=== PATIENT | female | born 2000 | race Caucasian/White ===

== ENCOUNTER 2023-10-20 23:52 | Emergency (ER) | payer BC ==
[2023-10-21] MEDS: Sodium Chloride 0.9% 1,000 ML IV SCH (00:30)
[2023-10-21] MEDS: Ondansetron 4 MG/2 ML SDV IVPUSH ONE (00:30)
[2023-10-21] MEDS: Sodium Chloride 0.9% 10 ML Syringe FLUSH PRN (00:32)
[2023-10-21 00:38] LABS: BASOPHILS PERCENT AUTO 0.2 % (0.0-1.0); EOSINOPHILS PERCENT AUTO 1.8 % (1.0-3.0); HEMATOCRIT 44.6 % (37.0-47.0); HEMOGLOBIN 15.6 g/dL (12.0-16.0); LYMPHOCYTES PERCENT AUTO 8.2 % (20.5-50.1); MEAN CORPUSCULAR HEMOGLOBIN 29.3 pg (27.0-34.0); MEAN CORPUSCULAR VOLUME 83.7 fL (80-100); MONOCYTES PERCENT AUTO 4.8 % (2-8); PLATELET COUNT,PLT 261 10^3/uL (150-450); RED BLOOD CELL COUNT 5.33 10^6/uL (4.2-5.4); WHITE BLOOD CELL COUNT,WBC 10.7 10^3/uL (5.0-10.0)
[2023-10-21 00:49] LABS: A/G RATIO 1.4; ALBUMIN 4.4 g/dL (3.4-5.0); ANION GAP 14.6 mEq/L (7-13); BILIRUBIN TOTAL 1.1 mg/dL (0.2-1.0); BUN/CREATININE RATIO 18.8 (No establ ref range); CALCIUM 8.7 mg/dL (8.5-10.1); CREATININE 0.96 mg/dL (0.55-1.02); EST CRCL DRUG DOSING (CG) 66.02 mL/min; POTASSIUM,K 3.6 mmol/L (3.5-5.1); PROTEIN TOTAL,TP 7.6 g/dL (6.4-8.2)
== END 2023-10-21 01:15 | disposition home or self-care (01) ==
LOC: DL.ED 23:52
DX: R19.7 Diarrhea, unspecified (principal); R11.2 Nausea with vomiting, unspecified; Z79.899 Other long term (current) drug therapy
CPT/HCPCS: 36415; 80053; 85025; 96361; 96374; 99284; J2405; J7030; J3490

== ENCOUNTER 2023-10-21 21:11 | Emergency (ER) | payer BC ==
[2023-10-21] MEDS: Sodium Chloride 0.9% 1,000 ML IV SCH ×2 (21:55→22:55)
[2023-10-21] MEDS: Metoclopramide 10 MG/2 ML SDV IVPUSH ONE (21:55)
[2023-10-21] MEDS: Sodium Chloride 0.9% 10 ML Syringe FLUSH PRN (22:00)
[2023-10-21 22:03] LABS: ANION GAP 15.7 mEq/L (7-13); CALCIUM 8.5 mg/dL (8.5-10.1); CREATININE 0.88 mg/dL (0.55-1.02); EST CRCL DRUG DOSING (CG) 72.03 mL/min; POTASSIUM,K 3.7 mmol/L (3.5-5.1)
[2023-10-21] MEDS: Ondansetron 4 MG/2 ML SDV IVPUSH ONE (22:57)
== END 2023-10-21 23:32 | disposition home or self-care (01) ==
LOC: DL.ED 21:11
DX: R11.2 Nausea with vomiting, unspecified (principal); R19.7 Diarrhea, unspecified; R10.30 Lower abdominal pain, unspecified; I10 Essential (primary) hypertension; Z79.899 Other long term (current) drug therapy
CPT/HCPCS: 36415; 80048; 87045; 87046; 87899; 96361; 96374; 96375; 99283; 99284-25; J2405; J2765; J3490; J7030

== ENCOUNTER 2024-05-05 10:20 | Emergency (ER) | payer BC ==
[2024-05-05 10:57] LABS: BASOPHILS PERCENT AUTO 0.5 % (0.0-1.0); EOSINOPHILS PERCENT AUTO 6.2 % (1.0-3.0); HEMATOCRIT 43.7 % (37.0-47.0); MEAN CORPUSCULAR HEMOGLOBIN 29.4 pg (27.0-34.0); MEAN CORPUSCULAR HGB CONC 34.3 g/dL (33.0-35.0); MEAN CORPUSCULAR VOLUME 85.5 fL (80-100); MONOCYTES PERCENT AUTO 9.4 % (2-8); NEUTROPHILS PERCENT AUTO 50.9 % (42.2-75.2); PLATELET COUNT,PLT 276 10^3/uL (150-450); RED BLOOD CELL COUNT 5.11 10^6/uL (4.2-5.4); WHITE BLOOD CELL COUNT,WBC 5.5 10^3/uL (5.0-10.0)
[2024-05-05] MEDS: Sodium Chloride 0.9% 1,000 ML IV ONE (11:00)
[2024-05-05] MEDS: methylPREDNISolone Sodium Succinate 125 MG/2 ML SDV IVPUSH ONE (11:01)
[2024-05-05] MEDS: Ondansetron 4 MG/2 ML SDV IVPUSH ONE (11:01)
[2024-05-05] MEDS: Famotidine 20 MG/2 ML SDV IVPUSH ONE (11:01)
[2024-05-05 11:16] LABS: A/G RATIO 1.4; ALBUMIN 4.1 g/dL (3.4-5.0); ANION GAP 12.9 mEq/L (7-13); BILIRUBIN TOTAL 1.1 mg/dL (0.2-1.0); BUN/CREATININE RATIO 14.3 (No establ ref range); CALCIUM 9.2 mg/dL (8.5-10.1); CREATININE 0.84 mg/dL (0.55-1.02); EST CRCL DRUG DOSING (CG) 75.46 mL/min; MAGNESIUM 1.8 mg/dL (1.8-2.4); POTASSIUM,K 3.9 mmol/L (3.5-5.1); PROTEIN TOTAL,TP 7.1 g/dL (6.4-8.2)
== END 2024-05-05 12:42 | disposition home or self-care (01) ==
LOC: DL.ED 10:20
DX: R22.0 Localized swelling, mass and lump, head (principal); T78.1XXA Other adverse food reactions, not elsewhere classified, initial encounter; I10 Essential (primary) hypertension; Z90.49 Acquired absence of other specified parts of digestive tract; Z79.899 Other long term (current) drug therapy
CPT/HCPCS: 36415; 80053; 83735; 85025; 96361; 96374; 96375; 99283; J2405; J2919; J3490; J7030